=== PATIENT | female | born 1955 | race Caucasian/White ===

== ENCOUNTER 2019-04-07 15:59 | Inpatient (IN) | payer MEDICARE, BC ==
[~2019-04-07] VITALS: Ht 157.5 cm; Wt 68.0 kg
--- NOTE | 2019-04-07 00:05 | NUR ---
RECEIVED PATIENT VIA BED FROM OR POST-OP [facility]. PATIENT IS A/O X4. FAMILY PRESENT AT BEDSIDE. DENIES PAIN UPON ARRIVAL TO FLOOR. ON RA. VS WNL. H/L INTACT AND PATENT. INCISION SITE X3 NOTED TO ABDOMEN, C/D/I. ORIENTED PATIENT TO ROOM AND CALL LIGHT. CALL LIGHT IN REACH. ALL NEEDS ATTENDED. WILL CONTINUE TO MONITOR AND ASSESS. Addendum: 04/08/19 at 0111 by TIM SALEEM LVN ERROR
[2019-04-07] MEDS ORDERED: UNK BP MED (16:14)
--- NOTE | 2019-04-07 16:30 | NUR ---
patient walked in with lower abd pain radiation to the upper abdomen. also this patient c/o vomiting x 2. denied fever. sx started today in the morning. hx of hypertension. patient looks pale, not tachy, can speak full sentence. placed on the monitor and changed the hospital gown.
[2019-04-07] MEDS ORDERED: MORPHINE SULFATE 2 MG/1 ML DISP.SYRIN IV ONE (16:45)
[2019-04-07] MEDS ORDERED: IV NORMAL SALINE 1000 ML BAG IV ONE (16:45)
[2019-04-07] MEDS ORDERED: ONDANSETRON 4 MG/2 ML VIAL IV ONE ×2 (16:45→19:15)
[2019-04-07] MEDS ORDERED: PANTOPRAZOLE SODIUM 40 MG VIAL IV ONE (16:45)
--- NOTE | 2019-04-07 16:45 | NUR ---
bedside X-ray was taken
[2019-04-07] MEDS ORDERED: PANTOPRAZOLE SODIUM 40 MG VIAL ONE (16:54)
[2019-04-07] MEDS ORDERED: ONDANSETRON 4 MG/2 ML VIAL ONE ×3 (16:54→20:08)
[2019-04-07] MEDS ORDERED: MORPHINE SULFATE 4 MG/1 ML DISP.SYRIN ONE (16:54)
[2019-04-07] MEDS ORDERED: HYDROMORPHONE 1 MG/1 ML DISP.SYRIN ONE ×2 (17:15→19:23)
[2019-04-07] MEDS ORDERED: HYDROMORPHONE 1 MG/1 ML DISP.SYRIN IV ONE ×2 (17:15→19:15)
[2019-04-07 17:16] LABS: BASOPHILS # (AUTO) 0.1 K/uL (0.0-8.0); BASOPHILS % (AUTO) 0.7 % (0.0-2.0); EOSINOPHILS % (AUTO) 0.1 % (0.0-7.0); HEMATOCRIT 41.3 % (31.2-41.9); HEMOGLOBIN 13.9 g/dL (10.9-14.3); LYMPHOCYTES # (AUTO) 0.9 K/uL (20.0-40.0); LYMPHOCYTES % (AUTO) 8.9 % (20.5-51.5); MEAN CORPUSCULAR HEMOGLOBIN 31.5 uug (24.7-32.8); MEAN CORPUSCULAR HGB CONC 34 g/dL (32.3-35.6); MEAN CORPUSCULAR VOLUME 93.7 fL (75.5-95.3); MONOCYTES # (AUTO) 0.6 K/uL (2.0-10.0); MONOCYTES % (AUTO) 5.7 % (0.0-11.0); NEUTROPHILS # (AUTO) 8.9 K/uL (1.8-8.9); NEUTROPHILS % (AUTO) 84.6 % (38.5-71.5); PLATELET COUNT (AUTO) 277 K/uL (179-408); RED BLOOD CELL COUNT(AUTO) 4.41 MIL/uL (3.63-4.92); WHITE BLOOD COUNT (AUTO) 10.5 K/uL (3.8-11.8)
[2019-04-07 17:25] LABS: CREATININE 0.8 mg/dL (0.6-1.3); POTASSIUM 3.5 mmol/L (3.5-5.1)
[2019-04-07 17:40] LABS: BILIRUBIN,DIRECT 0.2 mg/dL (0.0-0.2); BILIRUBIN,TOTAL 0.8 mg/dL (0.2-1.0); TOTAL PROTEIN, SERUM 7.9 g/dL (6.4-8.2)
--- NOTE | 2019-04-07 17:50 | NUR ---
transfered to CT
[2019-04-07] MEDS ORDERED: PIPERACILLIN SODIUM/TAZOBACTAM 3.375 G in IV DEXTROSE 5% 50 ML IV ONE (18:45)
--- NOTE | 2019-04-07 18:53 | NUR ---
Dr Sullivan confirmed not to need blood cultures
[2019-04-07] MEDS ORDERED: PIPERACILLIN/TAZOBACTAM/D5W 50 ML IV ONE (19:01)
--- NOTE | 2019-04-07 19:12 | NUR ---
gave the report to Lawson ROUSSEAU
--- NOTE | 2019-04-07 19:35 | NUR ---
Report given to Nilam ROUSSEAU Surgery.
[2019-04-07] MEDS ORDERED: ONDANSETRON 4 MG/2 ML VIAL IV STA (20:01)
[2019-04-07] MEDS ORDERED: BUPIVACAINE PF 0.5% 30 ML VIAL ONE (20:16)
[2019-04-07] MEDS ORDERED: LIDOCAINE 1%-EPI 1:100,000 20 ML VIAL ONE (20:16)
[2019-04-07] MEDS ORDERED: FENTANYL CITRATE 100 MCG/2 ML AMPUL ONE (20:20)
[2019-04-07] MEDS ORDERED: MIDAZOLAM HCL 2 MG/2 ML VIAL ONE (20:20)
[2019-04-07] MEDS ORDERED: ROCURONIUM BROMIDE 50 MG/5 ML VIAL ONE (20:20)
[2019-04-07] MEDS ORDERED: BACITRACIN ZINC OINT 15 GM TUBE ONE (20:25)
--- NOTE | 2019-04-07 20:25 | NUR ---
Pt out of ER for surgery.
[2019-04-07] MEDS ORDERED: ONDANSETRON 4 MG/2 ML VIAL IV PRN ×2 (22:00→23:15)
[2019-04-07] MEDS ORDERED: ACETAMINOPHEN 325 MG TABLET PO PRN (22:00)
[2019-04-07] MEDS ORDERED: HYDROCODONE/APAP 5-325MG TABLET PO PRN (22:00)
[2019-04-07] MEDS ORDERED: IV NS 1000 ML 1,000 ML IV PRN (22:00)
[2019-04-07] MEDS ORDERED: ZOLPIDEM 5 MG TABLET PO PRN (22:00)
[2019-04-07] MEDS ORDERED: MORPHINE SULFATE 2 MG/1 ML DISP.SYRIN IV PRN (22:00)
[2019-04-07] MEDS ORDERED: MAGNESIUM HYDROXIDE 30 ML LIQUID UDC PO PRN (22:00)
--- NOTE | 2019-04-07 23:05 | NUR ---
RECEIVED PATIENT VIA BED FROM OR POST-OP LAP APPY. PATIENT IS A/O X4. FAMILY PRESENT AT BEDSIDE. DENIES PAIN UPON ARRIVAL TO FLOOR. ON RA. VS WNL. H/L INTACT AND PATENT. INCISION SITE X3 NOTED TO ABDOMEN, C/D/I. ORIENTED PATIENT TO ROOM AND CALL LIGHT. CALL LIGHT IN REACH. ALL NEEDS ATTENDED. WILL CONTINUE TO MONITOR AND ASSESS.
[2019-04-07] MEDS ORDERED: HYDROCODONE/APAP 10-325 MG TABLET PO PRN (23:15)
[2019-04-07] MEDS ORDERED: HYDROMORPHONE 1 MG/1 ML DISP.SYRIN IV PRN (23:15)
[2019-04-07 23:18] VITALS: BP 97/65
[2019-04-07 23:35] VITALS: BP 96/64
[2019-04-08] MEDS: IV LACTATED RINGERS SOLUTION 1,000 ML IV PRN ×2 (00:09→07:27)
[2019-04-08] MEDS ORDERED: PIPERACILLIN SODIUM/TAZOBACTAM 3.375 G in IV DEXTROSE 5% 50 ML IV SCH ×6 (01:00→06:00)
[2019-04-08] MEDS ORDERED: PIPERACILLIN/TAZOBACTAM/D5W 50 ML IV ONE (01:21)
[2019-04-08 05:16] VITALS: BP 108/62
--- NOTE | 2019-04-08 05:35 | NUR ---
PATIENT AWAKE IN BED. C/O HEADACHE. PATIENT GIVEN TYLENOL 650MG PO PRN. WILL CONTINUE TO MONITOR AND ASSESS.
--- NOTE | 2019-04-08 06:15 | NUR ---
PATIENT ASSISTED OOB TO BATHROOM. URINATED. PATIENT AMBULATED IN HALLWAY. DENIES PAIN, JUST STATED MILD DISCOMFORT. DENIES ANY NEEDS FOR PAIN MEDICATION AT THIS TIME. DRESSINGS CLEAN, DRY AND INTACT. IS AT BEDSIDE. PATIENT EDUCATED ON HOW TO USE. VERBALIZED UNDERSTANDING. DVT PUMPS IN PLACE. ALL NEEDS ATTENDED, WILL CONTINUE TO MONITOR AND ASSESS.
[2019-04-08 06:36] LABS: BASOPHILS % (AUTO) 0.2 % (0.0-2.0); HEMATOCRIT 34.2 % (31.2-41.9); HEMOGLOBIN 11.8 g/dL (10.9-14.3); LYMPHOCYTES # (AUTO) 0.6 K/uL (20.0-40.0); LYMPHOCYTES % (AUTO) 4.6 % (20.5-51.5); MEAN CORPUSCULAR HGB CONC 35 g/dL (32.3-35.6); MEAN CORPUSCULAR VOLUME 95.6 fL (75.5-95.3); MONOCYTES # (AUTO) 0.2 K/uL (2.0-10.0); MONOCYTES % (AUTO) 1.9 % (0.0-11.0); NEUTROPHILS # (AUTO) 11.5 K/uL (1.8-8.9); NEUTROPHILS % (AUTO) 93.3 % (38.5-71.5); PLATELET COUNT (AUTO) 249 K/uL (179-408); RED BLOOD CELL COUNT(AUTO) 3.58 MIL/uL (3.63-4.92); WHITE BLOOD COUNT (AUTO) 12.3 K/uL (3.8-11.8)
[2019-04-08 07:15] LABS: CREATININE 0.9 mg/dL (0.6-1.3); MAGNESIUM 1.5 mg/dL (1.8-2.4); PHOSPHOROUS 3.4 mg/dL (2.5-4.9)
--- NOTE | 2019-04-08 09:00 | NUR ---
Patient AOx4, no distress, incisions intact w/o any discharge, patient anneliese to the bathroom, intensive spirometer reinforced to use, patient ambulatory with assist, complained about headache ( will address per orders) Safety maintained, cont of care
[2019-04-08] MEDS: PIPERACILLIN SODIUM/TAZOBACTAM 3.375 G in IV DEXTROSE 5% 50 ML IV SCH ×2 (09:03→16:53)
[2019-04-08] MEDS ORDERED: IBUPROFEN 800 MG TABLET PO PRN (10:30)
[2019-04-08] MEDS ORDERED: MAGNESIUM SULFATE 2 GM in IV DEXTROSE 5% 100 ML IV ONE (10:45)
[2019-04-08] MEDS ORDERED: MAGNESIUM SULFATE/D5W 100 ML IV SCH (10:45)
[2019-04-08] MEDS: MAGNESIUM SULFATE/D5W 100 ML IV SCH ×2 (10:46→12:09)
[2019-04-08] MEDS ORDERED: ONDANSETRON 4 MG/2 ML VIAL IV PRN (11:00)
--- NOTE | 2019-04-08 11:00 | NUR ---
Patient ambulated in the whole way twice around the unit w/ my stand by assist Received call from Dr Almeida and gave an update on patient's labs and condition of recovery, received orders to repeat CBC in the am, regular diet for lunch, Ibuprofen Q8H 800 mg PO, decrease LR to 75ml/h, replace Mag with 2 g via IV.
[2019-04-08 12:07] VITALS: BP 103/67
[2019-04-08] MEDS ORDERED: METR500T PO (13:00)
[2019-04-08] MEDS ORDERED: CIPR-262 PO (13:00)
[2019-04-08 15:48] VITALS: BP 96/57
== END 2019-04-08 20:34 | disposition home or self-care (01) | DRG 342 ==
LOC: ER 16:07 → MEDSURG3 19:30
PROVIDERS: ADMIT Nurse Practitioner Acute Care; ATTEND Nurse Practitioner Acute Care
PROC: 0DTJ4ZZ Resection of Appendix, Percutaneous Endoscopic Approach (ICD-10-PCS; principal; 2019-04-07)
DX: K35.80 Unspecified acute appendicitis (principal); J98.11 Atelectasis; K38.1 Appendicular concretions; K57.30 Diverticulosis of large intestine without perforation or abscess without bleeding; N63.20 Unspecified lump in the left breast, unspecified quadrant; D25.9 Leiomyoma of uterus, unspecified; K44.9 Diaphragmatic hernia without obstruction or gangrene; K76.0 Fatty (change of) liver, not elsewhere classified; I10 Essential (primary) hypertension; K42.9 Umbilical hernia without obstruction or gangrene; K40.90 Unilateral inguinal hernia, without obstruction or gangrene, not specified as recurrent; M46.06 Spinal enthesopathy, lumbar region; M48.061 Spinal stenosis, lumbar region without neurogenic claudication; R51 Headache
CPT/HCPCS: 36415; 70030-TC; 71045; 83690; 83735; 84100; 85025; 85730; 93005; A4663; C9113; G0378; J1170; J2250; J2270; J2405; J2543; J3010; J3475; J3490; J7030; J7050; J7060; J7120